=== PATIENT | male | born 1940 | race Caucasian/White ===

== ENCOUNTER 2017-02-11 09:40 | Emergency (ER) | payer MEDICARE, BC ==
[2017-02-11] MEDS ORDERED: Sodium Chloride 0.9% 10 ML Syringe FLUSH PRN (09:57)
[2017-02-11] MEDS ORDERED: Albuterol/Ipratropium 3.0-0.5 MG/3 ML Neb Soln NEB ONE ×2 (09:58→12:05)
[2017-02-11] MEDS ORDERED: Benzonatate 100 MG Cap PO ONE (10:00)
[2017-02-11 10:22] VITALS: BP 129/63
[2017-02-11 10:41] LABS: CHLORIDE,CL 97 mmol/L (101-111); SODIUM,NA 134 mmol/L (135-145)
[2017-02-11] MEDS ORDERED: cefTRIAXone 1 GM in Sodium Chloride 0.9% 50 ML IV ONE (11:23)
--- NOTE | 2017-02-11 15:31 | ER ---
SUBJECTIVE: The patient is a 76-year-old male, who has had a cold. He was just seen in clinic, I believe on Sunday, being sick for over a week. He went to [facility], here in [facility]. He was prescribed amoxicillin and Tessalon Perles. He states he used all the Perles, has finished his amoxicillin, he is not better, he still coughing, he was up all night coughing. He has some lethargy and malaise. He has body aches from coughing, not slept, and he has some sweats and chills. He came in by ambulance. He states he just cannot take any longer. He has decreased appetite. PAST MEDICAL HISTORY: Pertinent for hypertension, diabetes, osteoarthritis. CURRENT MEDICATIONS: Include: 1. Aspirin 81 mg p.o. daily. 2. Vasotec 20 mg p.o. b.i.d. 3. Hydrochlorothiazide 12.5 mg p.o. daily. 4. Metoprolol 50 mg p.o. daily. 5. Amlodipine 7.5 mg p.o. daily. 6. Metformin 500 mg p.o. daily. ALLERGIES: He is allergic to loratadine, does not recall why. SOCIAL HISTORY: He is , lives at home. No substance abuse. REVIEW OF SYSTEMS: Feels feverish. Unsure, if he has had a fever. He has some chills, lethargy, general malaise, body aches, coughing all night, has decreased appetite. Occasional mild headache. No syncope, near-syncope. No vision changes. No ear pain. No sinus pain. No bowel or bladder changes or bleeding. OBJECTIVE: Vital signs: His height is 1.91 m, weight is 104 kg. His temperature is 36.2, heart rate 66, blood pressure is 157/73, respiratory rate 24, oxygen 100% on room air. General: Warm, mildly diaphoretic. Fairly good historian. No respiratory distress. He does have some coughing. He is able to speak in full sentences. HEENT: Normocephalic and atraumatic. Unremarkable. Neck: Unremarkable. Chest: Moving air fairly well and fairly clear. He is coughing on occasion. Occasional rhonchi. He clears it with cough. CV: RRR. Abdomen: Soft and benign. Back: No CVAT. Extremities: No calf tenderness. LAB/STUDIES: He was swabbed for flu. It was negative. White count is normal at 5.5. He has mild anemia with hemoglobin and hematocrit of 13.2 and 38.9, respectively, platelets are normal. Sodium is 134, otherwise electrolytes look quite good. BUN is 27 but creatinine is normal at 1.0, glucose is 187. Lactic acid is 1.4 and normal. LFTs are normal. EMERGENCY ROOM COURSE: An IV was placed. He was given a DuoNeb treatment as well as a 200 mg Tessalon Perle. Once labs were back, he was given 1 g of Rocephin IV. He was given another DuoNeb. His chest x-ray did not show any acute pneumonia or pneumonic process. His blood was sent for culture, although he has already been on antibiotics. He tolerated all this very well and much improved. I did explain to him and his attendant , his workup and the findings of chest x-ray. He remained stable. ASSESSMENT: Bronchitis with heavy coughing. Already partially treated from when he was seen in clinic. PLAN: Home stay with family. Discharged in improved condition. Prescription for azithromycin and Tessalon Perles and albuterol inhaler were given. Symptomatic treatment. Plenty of rest, fluids, buy some strong [id number] cough medicine and syrup and lozenges. Follow up with PCP this next week as needed. [facility] /[id number]
== END 2017-02-11 12:20 | disposition home or self-care (01) ==
LOC: DL.ED 09:40
DX: J40 Bronchitis, not specified as acute or chronic (principal); I10 Essential (primary) hypertension; E11.9 Type 2 diabetes mellitus without complications; M19.90 Unspecified osteoarthritis, unspecified site; Z88.8 Allergy status to other drugs, medicaments and biological substances
CPT/HCPCS: 36415; 71020; 80053; 82150; 83605; 83880; 85025; 87040; 87804; 94640; 96365; 99285; A9270; J0696; J7050; 99284

== ENCOUNTER 2018-03-09 19:36 | Emergency (ER) | payer MEDICARE, BC ==
[2018-03-09 20:04] VITALS: BP 185/84
[2018-03-09 21:48] LABS: CHLORIDE,CL 95 mmol/L (101-111); SODIUM,NA 134 mmol/L (135-145)
[2018-03-09] MEDS ORDERED: Oseltamivir 75 MG Cap PO ONE (21:57)
--- NOTE | 2018-03-09 22:01 | EDM.PDOC ---
ED HPI GENERAL MEDICAL PROBLEM - General Chief Complaint: ENT Problem Stated Complaint: cold [id number] Time Seen by Provider: 03/09/18 20:45 Source of Information: Reports: Patient History Limitations: Reports: No Limitations - History of Present Illness INITIAL COMMENTS - FREE TEXT/NARRATIVE: C/o sore throat, [id number] phlegm that feels like he is choking, Occasional cough. No chest pain, mild body aches. Sudden onset of symptoms yesterday morning. also sick with fever, cough and body aches. Throat Pain Score (Numeric/FACES): 10 - Related Data Allergies Allergy/AdvReac Type Severity Reaction Status Date / Time loratadine Allergy Cannot Verified 03/09/18 19:47 Remember Home Meds: Home Meds Aspirin [Halfprin] 81 mg PO DAILY 02/11/17 [History] Enalapril [Vasotec] 20 mg PO BID 02/11/17 [History] Hydrochlorothiazide 12.5 mg PO DAILY 02/11/17 [History] Metoprolol Succinate [Toprol XL] 50 mg PO DAILY 02/11/17 [History] amLODIPine [Norvasc] 7.5 mg PO DAILY 02/11/17 [History] metFORMIN [Glucophage XR] 500 mg PO BID 02/11/17 [History] Past Medical History HEENT History: Reports: Cataract, Impaired Vision Cardiovascular History: Reports: High Cholesterol, Hypertension, Pacemaker Gastrointestinal History: Reports: Gastritis Endocrine/Metabolic History: Reports: Diabetes, Type II Social & Family History - Tobacco Use Smoking Status *Q: Never Smoker Second Hand Smoke Exposure: No - Caffeine Use Caffeine Use: Reports: None - Recreational Drug Use Recreational Drug Use: No ED ROS ENT - Review of Systems Review Of Systems: See Below Constitutional: Reports: Fever, Decreased Appetite HEENT: Reports: Throat Pain. Denies: Ear Pain, Rhinitis Respiratory: Denies: Shortness of Breath, Wheezing Cardiovascular: Denies: Chest Pain GI/Abdominal: Reports: Decreased Appetite Musculoskeletal: Reports: Other (generalized body ache) Neurological: Reports: No Symptoms ED EXAM, ENT - Physical Exam Exam: See Below Exam Limited By: No Limitations General Appearance: Alert, No Apparent Distress, Anxious Eye Exam: Bilateral Eye: EOMI Ears: Normal TMs, Other (bilateral hearing aids) Nose: Normal Inspection Mouth/Throat: Normal Inspection. No: Pharyngeal Erythema Head: Atraumatic, Normocephalic Neck: Lymphadenopathy (L) Respiratory/Chest: No Respiratory Distress, Lungs Clear, Normal Breath Sounds Cardiovascular: Normal Peripheral Pulses, Regular Rate, Rhythm GI/Abdominal: Normal Bowel Sounds, Soft Extremities: Normal Inspection Neurological: Alert, Oriented, Normal Cognition Skin: Warm, Dry, Intact, Normal Color Course - Vital Signs Last Recorded V/S: Last Vital Signs Temp 100.0 F 03/09/18 22:18 Pulse 77 03/09/18 22:18 Resp 18 03/09/18 22:18 BP 185/84 H 03/09/18 19:56 Pulse Ox 98 03/09/18 22:18 - Orders/Labs/Meds Orders: Active Orders 24 hr Category Date Time Status CULTURE SPUTUM + SMEAR [] Stat Lab 03/09/18 21:15 Ordered CULTURE STREP A CONFIRMATION [] Stat Lab 03/09/18 21:15 Results STREP SCRN A RAPID W CULT CONF [] Stat Lab 03/09/18 21:15 Results Labs: Laboratory Tests 03/09/18 03/09/18 Range/Units 21:20 21:20 WBC 11.1 H (5.0-10.0) 10^3/uL RBC 4.57 L (4.6-6.2) 10^6/uL Hgb 14.0 (14.0-18.0) g/dL Hct 42.0 (40.0-54.0) % MCV 91.9 (80-100) fL MCH 30.6 (27.0-34.0) pg MCHC 33.3 (33.0-35.0) g/dL Plt Count 180 D (150-450) 10^3/uL Neut % (Auto) 59.5 (42.2-75.2) % Lymph % (Auto) 22.8 (20.5-50.1) % [place] % (Auto) 17.0 H (2-8) % Eos % (Auto) 0.3 L (1.0-3.0) % Baso % (Auto) 0.4 (0.0-1.0) % Sodium 134 L (135-145) mmol/L Potassium 3.9 (3.6-5.0) mmol/L Chloride 95 L (101-111) mmol/L Carbon Dioxide 29.0 (21.0-31.0) mmol/L Anion Gap 13.9 BUN 20 H (7-18) mg/dL Creatinine 1.0 (0.6-1.3) mg/dL Est Cr Clr Drug Dosing 71.59 mL/min Estimated GFR (MDRD) > 60 Glucose 206 H (74-105) mg/dL Calcium 9.9 (8.4-10.2) mg/dl Meds: Medications Discontinued Medications Generic Name Dose Route Start Last Admin Trade Name Freq PRN Reason Stop Dose Admin Guaifenesin 100 mg 03/09/18 22:06 03/09/18 22:12 Robitussin PO 03/09/18 22:07 100 mg ONETIME ONE Administration Oseltamivir Phosphate 75 mg 03/09/18 21:57 03/09/18 22:11 Tamiflu PO 03/09/18 21:58 75 mg ONETIME ONE Administration - Radiology Interpretation Free Text/Narrative:: CXR clear Departure - Departure Time of Disposition: 21:59 Disposition: Home, Self-Care 01 Condition: Good Clinical Impression: Influenza A - Discharge Information Instructions: Influenza, Adult Referrals: PCP,None [Primary Care Provider] - Forms: ED Department Discharge Additional Instructions: increase fluids humidification tamiflu 75mg one twice daily for 5 days robitussin or muccinex per package label to aid in loosening secretions follow up in clinic mid week, sooner if symptoms worsen - My Orders Last 24 Hours: My Active Orders 03/09/18 21:15 CULTURE SPUTUM + SMEAR [RM] Stat CULTURE STREP A CONFIRMATION [RM] Stat STREP SCRN A RAPID W CULT CONF [] Stat - Assessment/Plan Last 24 Hours: My Active Orders 03/09/18 21:15 CULTURE SPUTUM + SMEAR [] Stat CULTURE STREP A CONFIRMATION [] Stat STREP SCRN A RAPID W CULT CONF [] Stat
[2018-03-09] MEDS ORDERED: guaiFENesin 100 MG/5 ML Soln 5 ML UD Cup PO ONE (22:06)
== END 2018-03-09 22:22 | disposition home or self-care (01) ==
LOC: DL.ED 19:36
DX: J10.1 Influenza due to other identified influenza virus with other respiratory manifestations (principal); E78.00 Pure hypercholesterolemia, unspecified; I10 Essential (primary) hypertension; E11.9 Type 2 diabetes mellitus without complications; Z88.8 Allergy status to other drugs, medicaments and biological substances; Z79.82 Long term (current) use of aspirin; Z79.899 Other long term (current) drug therapy; Z79.84 Long term (current) use of oral hypoglycemic drugs
CPT/HCPCS: 36415; 71046; 80048; 85025; 87070; 87081; 87205; 87430; 87804; 99283; A9270

== ENCOUNTER 2019-08-12 12:15 | Emergency (ER) | payer MEDICARE, BC ==
[2019-08-12 12:29] VITALS: BP 183/71; PULSE 74
[2019-08-12] MEDS ORDERED: Sodium Chloride 0.9% 10 ML Syringe FLUSH PRN (12:34)
[2019-08-12 13:13] LABS: ANION GAP 17.9; CHLORIDE,CL 96 mmol/L (101-111); SODIUM,NA 135 mmol/L (135-145)
[2019-08-12] MEDS ORDERED: Sodium Chloride 0.9% 1,000 ML IV ONE (14:18)
--- NOTE | 2019-08-12 15:01 | EDM.PDOC ---
ED HPI GENERAL MEDICAL PROBLEM - General Chief Complaint: General Stated Complaint: light headed dizzy, high blood sugar per pt Time Seen by Provider: 08/12/19 12:40 Source of Information: Reports: Patient, Family, RN, RN Notes Reviewed History Limitations: Reports: No Limitations - History of Present Illness INITIAL COMMENTS - FREE TEXT/NARRATIVE: Pt to ER with c/o dizziness and high blood sugars. Patient states yesterday he was dizzy. Blood sugars have ran from 110-200 lately. He states he has his yearly physical with his primary care provider in September. Patient states on Sunday evening he had a right ear ache. States he has a pain in the LLQ that comes and goes, has for quite some time now. Denies bowel issues, blood in urine or stool. Denies diarrhea. Denies chest pains or SOB. Denies recent fever. He states he is always cold. Denies urinary sx. Onset: Gradual Left Lower Abdomen Pain Score (Numeric/FACES): 6 - Related Data Allergies Allergy/AdvReac Type Severity Reaction Status Date / Time loratadine Allergy Cannot Verified 08/12/19 12:23 Remember Home Meds: Home Meds Aspirin [Halfprin] 81 mg PO DAILY 02/11/17 [History] Enalapril [Vasotec] 20 mg PO BID 02/11/17 [History] Hydrochlorothiazide 12.5 mg PO DAILY 02/11/17 [History] Metoprolol Succinate [Toprol XL] 50 mg PO DAILY 02/11/17 [History] amLODIPine [Norvasc] 7.5 mg PO DAILY 02/11/17 [History] metFORMIN [Glucophage XR] 1,000 mg PO BID 02/11/17 [History] Past Medical History HEENT History: Reports: Cataract, Hard of Hearing, Impaired Vision Cardiovascular History: Reports: High Cholesterol, Hypertension, Pacemaker Respiratory History: Reports: None Gastrointestinal History: Reports: Gastritis Genitourinary History: Reports: None Musculoskeletal History: Reports: None Neurological History: Reports: None Psychiatric History: Reports: None Endocrine/Metabolic History: Reports: Diabetes, Type II Hematologic History: Reports: None Immunologic History: Reports: None Oncologic (Cancer) History: Reports: None Dermatologic History: Reports: None - Infectious Disease History Infectious Disease History: Reports: None - Past Surgical History Head Surgeries/Procedures: Reports: None Social & Family History - Family History Family Medical History: Noncontributory - Tobacco Use Smoking Status *Q: Never Smoker Second Hand Smoke Exposure: No - Caffeine Use Caffeine Use: Reports: None - Recreational Drug Use Recreational Drug Use: No ED ROS GENERAL - Review of Systems Review Of Systems: ROS reveals no pertinent complaints other than HPI. ED EXAM, GENERAL - Physical Exam Exam: See Below Exam Limited By: No Limitations General Appearance: Alert, WD/WN, No Apparent Distress Eye Exam: Bilateral Eye: EOMI, Normal Inspection Ears: Normal External Exam, Hearing Loss Ear Exam: Bilateral Ear: TM Dull Nose: Normal Inspection Throat/Mouth: Normal Inspection, Normal Lips, Normal Teeth, Normal Gums, Normal Oropharynx, Normal Voice, No Airway Compromise Head: Atraumatic, Normocephalic Neck: Normal Inspection, Supple, Non-Tender, Full Range of Motion Respiratory/Chest: No Respiratory Distress, Lungs Clear, Normal Breath Sounds, No Accessory Muscle Use, Chest Non-Tender Cardiovascular: Normal Peripheral Pulses, Regular Rate, Rhythm, No Edema, No Gallop, No JVD, No Murmur, No Rub Peripheral Pulses: 2+: Radial (L), Radial (R) GI/Abdominal: Normal Bowel Sounds, Soft, Tender (LLQ) (Male) Exam: Deferred Rectal (Males) Exam: Deferred Back Exam: Normal Inspection, Decreased Range of Motion Extremities: Normal Inspection, Normal Range of Motion, Non-Tender, Normal Capillary Refill, No Pedal Edema Neurological: Alert, Oriented, CN II-XII Intact, Normal Cognition, Normal Gait, Normal Reflexes, No Motor/Sensory Deficits Psychiatric: Normal Affect, Normal Mood Skin Exam: Warm, Dry, Intact, No Rash, Pallor Lymphatic: Adenopathy (Left anterior cervical +2) Course - Vital Signs Last Recorded V/S: Last Vital Signs Temp 97.4 F 08/12/19 12:25 Pulse 74 08/12/19 12:25 Resp 18 08/12/19 12:25 BP 183/71 H 08/12/19 12:25 Pulse Ox 98 08/12/19 12:25 - Orders/Labs/Meds Orders: Active Orders 24 hr Category Date Time Status EKG Documentation Completion [RC] STAT Care 08/12/19 13:28 Active Peripheral IV Care [RC] . DIRECTED Care 08/12/19 12:41 Active Sodium Chloride 0.9% [Saline Flush] Med 08/12/19 12:34 Active 10 ml FLUSH ASDIRECTED PRN Peripheral IV Insertion Adult [OM.PC] Stat Oth 08/12/19 12:35 Ordered Medication Orders Sodium Chloride (Saline Flush) 10 ml FLUSH ASDIRECTED PRN PRN Reason: Keep Vein Open Last Admin: 08/12/19 12:42 Dose: 10 ml Labs: Laboratory Tests 08/12/19 08/12/19 08/12/19 Range/Units 12:26 12:41 12:41 WBC 7.2 (5.0-10.0) 10^3/uL RBC 4.28 L (4.6-6.2) 10^6/uL Hgb 13.0 L (14.0-18.0) g/dL Hct 39.2 L (40.0-54.0) % MCV 91.6 (80-100) fL MCH 30.4 (27.0-34.0) pg MCHC 33.2 (33.0-35.0) g/dL Plt Count 248 (150-450) 10^3/uL Neut % (Auto) 41.9 L (42.2-75.2) % Lymph % (Auto) 37.6 (20.5-50.1) % [place] % (Auto) 16.7 H (2-8) % Eos % (Auto) 3.2 H (1.0-3.0) % Baso % (Auto) 0.6 (0.0-1.0) % Sodium 135 (135-145) mmol/L Potassium 3.9 (3.6-5.0) mmol/L Chloride 96 L (101-111) mmol/L Carbon Dioxide 25.0 (21.0-31.0) mmol/L Anion Gap 17.9 BUN 27 H (7-18) mg/dL Creatinine 1.1 (0.6-1.3) mg/dL Est Cr Clr Drug Dosing 62.95 mL/min Estimated GFR (MDRD) > 60 BUN/Creatinine Ratio 24.54 Glucose 181 H (74-105) mg/dL POC Glucose 169 H (83-110) mg/dl Lactic Acid (0.5-2.2) mmol/L Calcium 9.9 (8.4-10.2) mg/dl Total Bilirubin 0.4 (0.2-1.0) mg/dL AST 27 (10-42) IU/L ALT 16 (10-60) IU/L Alkaline Phosphatase 60 (42-121) IU/L Troponin I (0.00-0.02) ng/ml Total Protein 8.2 (6.7-8.2) g/dl Albumin 4.5 (3.2-5.5) g/dl Globulin 3.7 Albumin/Globulin Ratio 1.22 Urine Color (YELLOW) Urine Appearance (CLEAR) Urine pH (5.0-9.0) Ur Specific [place] (1.005-1.030) Urine Protein (NEGATIVE) Urine Glucose (UA) (NEGATIVE) Urine Ketones (NEGATIVE) Urine Occult Blood (NEGATIVE) Urine Nitrite (NEGATIVE) Urine Bilirubin (NEGATIVE) Urine Urobilinogen (0.2-1.0) mg/dL Ur Leukocyte Esterase (NEGATIVE) Urine RBC /HPF Urine WBC (0-5/HPF) /HPF Ur Epithelial Cells (NOT SEEN) /HPF Urine Bacteria (0-FEW/HPF) /HPF Urine Mucus (NOT SEEN) /LPF 08/12/19 08/12/19 08/12/19 Range/Units 12:41 12:41 13:05 WBC (5.0-10.0) 10^3/uL RBC (4.6-6.2) 10^6/uL Hgb (14.0-18.0) g/dL Hct (40.0-54.0) % MCV (80-100) fL MCH (27.0-34.0) pg MCHC (33.0-35.0) g/dL Plt Count (150-450) 10^3/uL Neut % (Auto) (42.2-75.2) % Lymph % (Auto) (20.5-50.1) % [place] % (Auto) (2-8) % Eos % (Auto) (1.0-3.0) % Baso % (Auto) (0.0-1.0) % Sodium (135-145) mmol/L Potassium (3.6-5.0) mmol/L Chloride (101-111) mmol/L Carbon Dioxide (21.0-31.0) mmol/L Anion Gap BUN (7-18) mg/dL Creatinine (0.6-1.3) mg/dL Est Cr Clr Drug Dosing mL/min Estimated GFR (MDRD) BUN/Creatinine Ratio Glucose (74-105) mg/dL POC Glucose (83-110) mg/dl Lactic Acid 2.7 H (0.5-2.2) mmol/L Calcium (8.4-10.2) mg/dl Total Bilirubin (0.2-1.0) mg/dL AST (10-42) IU/L ALT (10-60) IU/L Alkaline Phosphatase (42-121) IU/L Troponin I < 0.02 (0.00-0.02) ng/ml Total Protein (6.7-8.2) g/dl Albumin (3.2-5.5) g/dl Globulin Albumin/Globulin Ratio Urine Color Yellow (YELLOW) Urine Appearance Clear (CLEAR) Urine pH 5.5 (5.0-9.0) Ur Specific [place] 1.015 (1.005-1.030) Urine Protein Negative (NEGATIVE) Urine Glucose (UA) Negative (NEGATIVE) Urine Ketones Negative (NEGATIVE) Urine Occult Blood Trace-intact H (NEGATIVE) Urine Nitrite Negative (NEGATIVE) Urine Bilirubin Negative (NEGATIVE) Urine Urobilinogen 0.2 (0.2-1.0) mg/dL Ur Leukocyte Esterase Negative (NEGATIVE) Urine RBC 0-5 /HPF Urine WBC Not seen (0-5/HPF) /HPF Ur Epithelial Cells Rare (NOT SEEN) /HPF Urine Bacteria Not seen (0-FEW/HPF) /HPF Urine Mucus Not seen (NOT SEEN) /LPF Meds: Medications Generic Name Dose Route Start Last Admin Trade Name Freq PRN Reason Stop Dose Admin Sodium Chloride 10 ml 08/12/19 12:34 08/12/19 12:42 Saline Flush FLUSH 10 ml ASDIRECTED PRN Administration Keep Vein Open Discontinued Medications Generic Name Dose Route Start Last Admin Trade Name Freq PRN Reason Stop Dose Admin Sodium Chloride 1,000 mls @ 999 mls/hr 08/12/19 14:18 08/12/19 14:50 Normal Saline IV 08/12/19 15:18 999 mls/hr .BOLUS ONE Administration - Radiology Interpretation Free Text/Narrative:: Chest xray: FINDINGS: Tubes, catheters and devices: A pacemaker device is present, and its leads are in appropriate position. Lungs: The lungs are normal. Pleural space: There are no pleural effusions present. Heart/Mediastinum: The heart is not enlarged. Diaphragm: There is nonspecific elevation of the left hemidiaphragm. Bones/joints: Unremarkable IMPRESSION: 1. No acute abnormality. 2. No significant change is identified since the prior exam. Thank you for allowing us to participate in the care of your patient. Dictated and Authenticated by: Pk Londono MD 08/12/2019 2:27 PM Central Time ([place] & [place]) Abdomen/Pelvis CT wo contrast: FINDINGS: Lungs: The visualized portions of the lung bases are normal. Heart: The visualized portions of the heart are unremarkable. Diaphragm: There is nonspecific elevation of the left hemidiaphragm. Liver: The liver is normal. Gallbladder and bile ducts: Multiple calcified gallstones are present. Pancreas: The pancreas is normal. Spleen: The spleen is normal. Adrenals: The adrenal glands are normal. Kidneys and ureters: The kidneys are normal. There is no evidence of renal or ureteral calcifications. Stomach and bowel: The stomach is normal. No over distention of bowel loops is seen. Appendix: A normal appendix is identified. Intraperitoneal space: No evidence of intraperitoneal free air. Vasculature: The aorta demonstrates mild atherosclerotic calcification. Lymph nodes: No pathologic lymph node enlargement is demonstrated. Bladder: The bladder is normal. Reproductive: The prostate and seminal vesicles are normal. Bones/joints: There is marked narrowing of the L5-S1 disc. Marginal osteophytes are noted at multiple levels in the spine. Soft tissues: There are bilateral fat containing inguinal hernias. The extra- abdominal soft tissues are otherwise normal. IMPRESSION: 1. Bilateral inguinal hernias. No anterior abdominal wall hernia is demonstrated. 2. Elevation of the left hemidiaphragm. Thank you for allowing us to participate in the care of your patient. Dictated and Authenticated by: Pk Londono MD 08/12/2019 2:58 PM Central Time ([place] & [place]) See rad report Departure - Departure Time of Disposition: 15:01 Disposition: Home, Self-Care 01 Condition: Fair Clinical Impression: Dizziness Inguinal hernia Qualifiers: Obstruction and gangrene presence: without obstruction or gangrene Laterality: bilateral Recurrence: not specified as recurrent Qualified Code(s): K40.20 - Bilateral inguinal hernia, without obstruction or gangrene, not specified as recurrent Sinusitis Qualifiers: Sinusitis location: frontal Chronicity: subacute Qualified Code(s): J01.10 - Acute frontal sinusitis, unspecified - Discharge Information *PRESCRIPTION DRUG MONITORING PROGRAM REVIEWED*: No *COPY OF PRESCRIPTION DRUG MONITORING REPORT IN PATIENT PAU: No Instructions: Inguinal Hernia, Adult, [id number], Sinusitis, Adult, Easy-to- Read, Hernia, Adult, [id number], How to Perform a Sinus Rinse, [id number], Dizziness, [id number] Forms: ED Department Discharge Additional Instructions: RX: Augmentin Drink plenty of fluids Follow up with your primary care facility - My Orders Last 24 Hours: My Active Orders 08/12/19 12:34 Sodium Chloride 0.9% [Saline Flush] 10 ml FLUSH ASDIRECTED PRN 08/12/19 12:35 Peripheral IV Insertion Adult [OM.PC] Stat 08/12/19 12:41 Peripheral IV Care [RC] . DIRECTED 08/12/19 13:28 EKG Documentation Completion [RC] STAT - Assessment/Plan Last 24 Hours: My Active Orders 08/12/19 12:34 Sodium Chloride 0.9% [Saline Flush] 10 ml FLUSH ASDIRECTED PRN 08/12/19 12:35 Peripheral IV Insertion Adult [OM.PC] Stat 08/12/19 12:41 Peripheral IV Care [RC] . DIRECTED 08/12/19 13:28 EKG Documentation Completion [RC] STAT
== END 2019-08-12 15:20 | disposition home or self-care (01) ==
LOC: DL.ED 12:15
DX: K40.20 Bilateral inguinal hernia, without obstruction or gangrene, not specified as recurrent (principal); J01.10 Acute frontal sinusitis, unspecified; I10 Essential (primary) hypertension; E11.9 Type 2 diabetes mellitus without complications; Z79.84 Long term (current) use of oral hypoglycemic drugs; Z79.899 Other long term (current) drug therapy; Z79.82 Long term (current) use of aspirin; Z88.8 Allergy status to other drugs, medicaments and biological substances
CPT/HCPCS: 36415; 71045; 74176; 80053; 81001; 82962; 83605; 84484; 85025; 99285; J7030

== ENCOUNTER 2019-08-19 10:57 | Observation (INO) | payer MEDICARE, BC ==
[2019-08-19] MEDS ORDERED: Sodium Chloride 0.9% 10 ML Syringe FLUSH PRN (11:06)
[2019-08-19 11:43] LABS: ANION GAP 16.2; CHLORIDE,CL 96 mmol/L (101-111); SODIUM,NA 134 mmol/L (135-145)
--- NOTE | 2019-08-19 11:53 | EDM.PDOC ---
ED HPI GENERAL MEDICAL PROBLEM - General Chief Complaint: Diabetic Complaint Stated Complaint: AMBULNACE Time Seen by Provider: 08/19/19 11:00 Source of Information: Reports: Patient, EMS, EMS Notes Reviewed, Family, Old Records, RN, RN Notes Reviewed History Limitations: Reports: No Limitations - History of Present Illness INITIAL COMMENTS - FREE TEXT/NARRATIVE: Pt to ER per [facility] with c/o high blood sugars and overall feeling week. Patient was seen in the ER 1 week ago. He was started on Augmentin for a sinus infection. Patient states he was unable to finish taking the Augmentin as it upset his stomach so much. Patient states he did take it with food and water , did vomit once. States he feels he is too weak to do things he normally does. States his blood sugars have been running higher than normal. States he has his annual physical with his primary provider in September. Denies recent fever or chills, diarrhea, chest pain or SOB. Onset: Gradual - Related Data Allergies Allergy/AdvReac Type Severity Reaction Status Date / Time loratadine Allergy Cannot Verified 08/19/19 11:12 Remember Home Meds: Home Meds Aspirin [Halfprin] 81 mg PO DAILY 02/11/17 [History] Enalapril [Vasotec] 20 mg PO BID 02/11/17 [History] Hydrochlorothiazide 12.5 mg PO DAILY 02/11/17 [History] Metoprolol Succinate [Toprol XL] 50 mg PO DAILY 02/11/17 [History] amLODIPine [Norvasc] 7.5 mg PO DAILY 02/11/17 [History] Amoxicillin/Clavulanate K [Augmentin 875-125 MG] 1 tab PO DAILY 08/19/19 [ History] Famotidine [Pepcid] 20 mg PO DAILY PRN 08/19/19 [History] Simvastatin [Zocor] 20 mg PO BEDTIME 08/19/19 [History] metFORMIN HCl [Metformin HCl] 1,000 mg PO BIDMEALS 08/19/19 [History] Past Medical History HEENT History: Reports: Cataract, Hard of Hearing, Impaired Vision Cardiovascular History: Reports: High Cholesterol, Hypertension, Pacemaker Respiratory History: Reports: None Gastrointestinal History: Reports: Gastritis Genitourinary History: Reports: None Musculoskeletal History: Reports: None Neurological History: Reports: None Psychiatric History: Reports: None Endocrine/Metabolic History: Reports: Diabetes, Type II Hematologic History: Reports: None Immunologic History: Reports: None Oncologic (Cancer) History: Reports: None Dermatologic History: Reports: None - Infectious Disease History Infectious Disease History: Reports: None - Past Surgical History Head Surgeries/Procedures: Reports: None Social & Family History - Family History Family Medical History: Noncontributory - Tobacco Use Smoking Status *Q: Former Smoker Years of Tobacco use: 5 Packs/Tins Daily: 0.5 Used Tobacco, but Quit: Yes Month/Year Tobacco Last Used: november Second Hand Smoke Exposure: No - Caffeine Use Caffeine Use: Reports: Tea - Recreational Drug Use Recreational Drug Use: No ED ROS GENERAL - Review of Systems Review Of Systems: ROS reveals no pertinent complaints other than HPI. ED EXAM GENERAL NO PERIP PULSE - Physical Exam Exam: See Below Exam Limited By: No Limitations General Appearance: Alert, WD/WN, Mild Distress Eye Exam: Bilateral Eye: EOMI, Normal Inspection Ears: Normal External Exam, Hearing Grossly Normal, Other (hearing aids bilaterally) Nose: Normal Inspection, Normal Mucosa, No Blood Throat/Mouth: Normal Inspection, Normal Lips, Normal Teeth, Normal Gums, Normal Oropharynx, Normal Voice, No Airway Compromise Head: Atraumatic, Normocephalic Neck: Normal Inspection, Supple, Non-Tender, Full Range of Motion Respiratory/Chest: No Respiratory Distress, Lungs Clear, Normal Breath Sounds, No Accessory Muscle Use, Chest Non-Tender Cardiovascular: Normal Peripheral Pulses, Regular Rate, Rhythm, No Edema, No Gallop, No JVD, No Murmur, No Rub GI/Abdominal: Normal Bowel Sounds, Soft, Non-Tender, No Organomegaly, No Distention, No Abnormal Bruit, No Mass (Male) Exam: Deferred Rectal (Males) Exam: Deferred Back Exam: Normal Inspection, Full Range of Motion, NT Extremities: Normal Inspection, Normal Range of Motion, Non-Tender, Normal Capillary Refill, No Pedal Edema Neurological: Alert, Oriented, CN II-XII Intact, Normal Cognition, Other (weak) Psychiatric: Normal Affect, Normal Mood Skin Exam: Warm, Dry, Intact, Pallor Lymphatic: No Adenopathy Course - Vital Signs Last Recorded V/S: Last Vital Signs Temp 97 F 08/19/19 12:43 Pulse 74 08/19/19 12:43 Resp 20 08/19/19 12:43 BP 159/67 H 08/19/19 12:43 Pulse Ox 100 08/19/19 12:43 - Orders/Labs/Meds Orders: Active Orders 24 hr Category Date Time Status EKG Documentation Completion [RC] STAT Care 08/19/19 11:06 Active Peripheral IV Care [RC] . DIRECTED Care 08/19/19 11:07 Active Sodium Chloride 0.9% [Saline Flush] Med 08/19/19 11:06 Active 10 ml FLUSH ASDIRECTED PRN Peripheral IV Insertion Adult [OM.PC] Stat Oth 08/19/19 11:06 Ordered Medication Orders Amlodipine Besylate (Norvasc) 7.5 mg PO DAILY [facility] Aspirin (Halfprin) 81 mg PO DAILY [facility] Enoxaparin Sodium (Lovenox) 40 mg SUBCUT DAILY [facility] Sodium Chloride (Normal Saline) 1,000 mls @ 75 mls/hr IV ASDIRECTED [facility] Last Admin: 08/19/19 15:05 Dose: 75 mls/hr Insulin Human Lispro (Humalog) 0 unit SUBCUT TIDMEALS [facility]; Protocol Metformin HCl (Glucophage) 1,000 mg PO BIDMEALS [facility] Metoprolol Succinate (Toprol Xl) 50 mg PO DAILY [facility] Enalapril 20 Mg Tab (Pt Own Med) 20 mg PO BID [facility] Pantoprazole Sodium (Protonix Iv) 40 mg IVPUSH DAILY [facility] Last Admin: 08/19/19 15:04 Dose: 40 mg Sodium Chloride (Saline Flush) 10 ml FLUSH ASDIRECTED PRN PRN Reason: Keep Vein Open Last Admin: 08/19/19 11:34 Dose: 10 ml Labs: Laboratory Tests 08/19/19 08/19/19 08/19/19 Range/Units 11:14 11:15 11:15 WBC 7.4 (5.0-10.0) 10^3/uL RBC 4.08 L (4.6-6.2) 10^6/uL Hgb 12.5 L (14.0-18.0) g/dL Hct 37.2 L (40.0-54.0) % MCV 91.2 (80-100) fL MCH 30.6 (27.0-34.0) pg MCHC 33.6 (33.0-35.0) g/dL Plt Count 248 (150-450) 10^3/uL Neut % (Auto) 39.7 L (42.2-75.2) % Lymph % (Auto) 39.4 (20.5-50.1) % [place] % (Auto) 16.9 H (2-8) % Eos % (Auto) 3.5 H (1.0-3.0) % Baso % (Auto) 0.5 (0.0-1.0) % PT (9.0-12.0) SEC INR (0.9-1.2) Sodium 134 L (135-145) mmol/L Potassium 4.2 (3.6-5.0) mmol/L Chloride 96 L (101-111) mmol/L Carbon Dioxide 26.0 (21.0-31.0) mmol/L Anion Gap 16.2 BUN 28 H (7-18) mg/dL Creatinine 1.3 (0.6-1.3) mg/dL Est Cr Clr Drug Dosing 53.26 mL/min Estimated GFR (MDRD) 53 BUN/Creatinine Ratio 21.53 Glucose 167 H (74-105) mg/dL POC Glucose 159 H (83-110) mg/dl Calcium 9.9 (8.4-10.2) mg/dl Total Bilirubin 0.7 (0.2-1.0) mg/dL AST 24 (10-42) IU/L ALT 16 (10-60) IU/L Alkaline Phosphatase 55 (42-121) IU/L Troponin I < 0.02 (0.00-0.02) ng/ml Total Protein 7.8 (6.7-8.2) g/dl Albumin 4.3 (3.2-5.5) g/dl Globulin 3.5 Albumin/Globulin Ratio 1.23 Amylase (28-100) U/L Lipase (22-51) U/L 08/19/19 08/19/19 Range/Units 11:15 11:15 WBC (5.0-10.0) 10^3/uL RBC (4.6-6.2) 10^6/uL Hgb (14.0-18.0) g/dL Hct (40.0-54.0) % MCV (80-100) fL MCH (27.0-34.0) pg MCHC (33.0-35.0) g/dL Plt Count (150-450) 10^3/uL Neut % (Auto) (42.2-75.2) % Lymph % (Auto) (20.5-50.1) % [place] % (Auto) (2-8) % Eos % (Auto) (1.0-3.0) % Baso % (Auto) (0.0-1.0) % PT 10.0 (9.0-12.0) SEC INR 1.0 (0.9-1.2) Sodium (135-145) mmol/L Potassium (3.6-5.0) mmol/L Chloride (101-111) mmol/L Carbon Dioxide (21.0-31.0) mmol/L Anion Gap BUN (7-18) mg/dL Creatinine (0.6-1.3) mg/dL Est Cr Clr Drug Dosing mL/min Estimated GFR (MDRD) BUN/Creatinine Ratio Glucose (74-105) mg/dL POC Glucose (83-110) mg/dl Calcium (8.4-10.2) mg/dl Total Bilirubin (0.2-1.0) mg/dL AST (10-42) IU/L ALT (10-60) IU/L Alkaline Phosphatase (42-121) IU/L Troponin I (0.00-0.02) ng/ml Total Protein (6.7-8.2) g/dl Albumin (3.2-5.5) g/dl Globulin Albumin/Globulin Ratio Amylase 85 (28-100) U/L Lipase 37 (22-51) U/L Meds: Medications Generic Name Dose Route Start Last Admin Trade Name Freq PRN Reason Stop Dose Admin Amlodipine Besylate 7.5 mg 08/20/19 09:00 Norvasc PO DAILY [facility] Aspirin 81 mg 08/20/19 09:00 Halfprin PO DAILY [facility] Enoxaparin Sodium 40 mg 08/20/19 09:00 Lovenox SUBCUT DAILY [facility] Sodium Chloride 1,000 mls @ 75 mls/hr 08/19/19 12:45 08/19/19 15:05 Normal Saline IV 75 mls/hr ASDIRECTED [facility] Administration Insulin Human Lispro 0 unit 08/19/19 17:00 Humalog SUBCUT TIDMEALS [facility] Protocol Metformin HCl 1,000 mg 08/19/19 18:00 Glucophage PO BIDMEALS [facility] Metoprolol Succinate 50 mg 08/20/19 09:00 Toprol Xl PO DAILY [facility] Enalapril 20 Mg Tab 20 mg 08/19/19 21:00 Pt Own Med PO BID [facility] Pantoprazole Sodium 40 mg 08/19/19 14:30 08/19/19 15:04 Protonix Iv IVPUSH 40 mg DAILY [facility] Administration Sodium Chloride 10 ml 08/19/19 11:06 08/19/19 11:34 Saline Flush FLUSH 10 ml ASDIRECTED PRN Administration Keep Vein Open Discontinued Medications Generic Name Dose Route Start Last Admin Trade Name Freq PRN Reason Stop Dose Admin Sodium Chloride 1,000 mls @ 999 mls/hr 08/19/19 12:03 08/19/19 12:09 Normal Saline IV 08/19/19 13:03 999 mls/hr .BOLUS ONE Administration Pantoprazole Sodium 40 mg/ 100 mls @ 20 mls/hr 08/19/19 13:00 Sodium Chloride IV .CONTINUOS [facility] - Radiology Interpretation Free Text/Narrative:: Chest xray: See rad report - Re-Assessments/Exams Free Text/Narrative Re-Assessment/Exam: 08/19/19 15:24 Discussed patient case with Dr. Dewitt who agreed to accept the patient for observation admission. Departure - Departure Time of Disposition: 12:29 Disposition: Refer to Observation Condition: Fair Clinical Impression: Generalized weakness Abdominal pain Qualifiers: Abdominal location: generalized Qualified Code(s): R10.84 - Generalized abdominal pain - Discharge Information *PRESCRIPTION DRUG MONITORING PROGRAM REVIEWED*: No *COPY OF PRESCRIPTION DRUG MONITORING REPORT IN PATIENT PAU: No - My Orders Last 24 Hours: My Active Orders 08/19/19 11:06 EKG Documentation Completion [RC] STAT Sodium Chloride 0.9% [Saline Flush] 10 ml FLUSH ASDIRECTED PRN Peripheral IV Insertion Adult [OM.PC] Stat 08/19/19 11:07 Peripheral IV Care [RC] . DIRECTED - Assessment/Plan Last 24 Hours: My Active Orders 08/19/19 11:06 EKG Documentation Completion [RC] STAT Sodium Chloride 0.9% [Saline Flush] 10 ml FLUSH ASDIRECTED PRN Peripheral IV Insertion Adult [OM.PC] Stat 08/19/19 11:07 Peripheral IV Care [RC] . DIRECTED
[2019-08-19] MEDS ORDERED: Sodium Chloride 0.9% 1,000 ML IV ONE (12:03)
[2019-08-19] MEDS ORDERED: Pantoprazole 40 MG in Sodium Chloride 0.9% 100 ML IV SCH (13:00)
--- NOTE | 2019-08-19 13:04 | CR ---
EXAMINATION: Chest 1V Frontal SEX: Male AGE: 79 years CLINICAL HISTORY: 79-year-old male complaining of chest pain. INTERPRETATION: 1. 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 2. Normal cardiac silhouette without new pulmonary venous congestion, cephalization of flow, alveolar edema or dependent pleural fluid accumulation. (External monitor technician leads) 3. No new lung mass, hilar lymphadenopathy or focal lobar pneumonia. 4. No atelectasis/collapse. No pneumothorax. CONCLUSION: No acute new cardiopulmonary abnormality.
[2019-08-19] MEDS: Pantoprazole 40 MG Vial IVPUSH SCH (15:04)
[2019-08-19] MEDS: Sodium Chloride 0.9% 1,000 ML IV SCH (15:05)
[2019-08-19] MEDS: Insulin Lispro 100 Units/ML 3 ML Vial SUBCUT SCH (16:59)
[2019-08-19] MEDS: METFORMIN 500 MG PO SCH (17:43)
--- NOTE | 2019-08-19 18:19 | HP ---
CHIEF COMPLAINT: Generalized weakness and abdominal pain. HISTORY OF PRESENT ILLNESS: The patient is an 79-year-old gentleman who was brought in by ER ambulance, by [facility] to the emergency room complaining of high blood sugar and overall just feeling weak. The patient was seen in the emergency room about a week ago. He was started on Augmentin for sinus infection, and he was unable to finish the Augmentin because it was bothering his stomach. Today, he has noted that his blood sugar was running a little bit elevated than usual and the highest that he took was about 260. He was also complaining of just feeling weak and also feeling shaky. He denies though any chest pain, orthopnea, PND, cough, diarrhea, dysuria nor any other complaints. Because of the above, he was seen in the emergency room, and because of his generalized weakness, he was admitted for further evaluation and management. He had a CAT scan of his abdomen a week ago and it showed bilateral inguinal hernia, otherwise unremarkable. PAST MEDICAL HISTORY: Remarkable for type 2 diabetes mellitus, hypertension. He is status post permanent pacemaker placement. He has history of gastritis. FAMILY HISTORY: Noncontributory. SOCIAL HISTORY: The patient is . Former smoker, but no alcohol or any illicit drug use. REVIEW OF SYSTEMS: As in HPI. The rest of the review of systems is negative. HOME MEDICATIONS: Aspirin, enalapril, hydrochlorothiazide, metoprolol, amlodipine, metformin, and Pepcid p.r.n. ALLERGIES: Loratadine. PHYSICAL EXAMINATION: General: The patient is alert and oriented, not in any acute distress. Vital Signs: Blood pressure is 137/70, pulse of 71, respirations 16, temperature of 97.6, saturation is 97%. SHEENT: Normocephalic. There are pink palpebral conjunctivae. Sclerae anicteric. No JVD. No lymphadenopathy. Heart: Regular rate and rhythm. Normal S1 and S2. No gallops. No rubs. Lungs: Equal bilaterally. No crackles. No wheezing. Abdomen: Obese, soft. There is very mild direct tenderness on the left lower quadrant. No rebound. Bowel sounds positive. Extremities: Negative for any significant pedal edema. No calf tenderness. LABORATORY WORKUP: CBC: WBC 7.4, hemoglobin is 12.1, hematocrit is 37.2, platelets are 248. Comp panel: Sodium is 134, BUN is 28, glucose is 167. The rest of the panel unremarkable. Troponin is less than 0.02. ADMITTING DIAGNOSES: 1. Generalized weakness. 2. Abdominal pain, possible gastritis. 3. Type 2 diabetes mellitus. 4. Hypertension. 5. History of pacemaker placement. TREATMENT PLAN: The patient is going to be admitted to observation, General Medicine floor. He will be started on IV fluids. He will be also started on IV Protonix, and he will be resumed on his home medication and blood sugar will be closely monitored. The rest of the management as necessary. [facility] /[id number]
[2019-08-19] MEDS: ENALAPRIL 20 MG PO SCH (20:40)
[2019-08-19] MEDS ORDERED: ENALAPRIL 20 MG PO SCH ×2 (21:00)
[2019-08-20] MEDS: Sodium Chloride 0.9% 1,000 ML IV SCH (03:57)
[2019-08-20 07:10] LABS: CHLORIDE,CL 102 mmol/L (101-111); SODIUM,NA 136 mmol/L (135-145)
[2019-08-20] MEDS: Insulin Lispro 100 Units/ML 3 ML Vial SUBCUT SCH ×2 (07:54→11:40)
[2019-08-20] MEDS: METFORMIN 500 MG PO SCH (08:28)
[2019-08-20] MEDS: ENALAPRIL 20 MG PO SCH (08:29)
[2019-08-20] MEDS: Pantoprazole 40 MG Vial IVPUSH SCH (08:38)
[2019-08-20] MEDS: Enoxaparin 40 MG/0.4 ML Syringe SUBCUT SCH ×2 (08:38→08:46)
[2019-08-20] MEDS ORDERED: Metoprolol Succinate 50 MG Tab.ER **PT OWN MED PO SCH (09:00)
[2019-08-20] MEDS ORDERED: amLODIPine 5 MG Tab **PT OWN MED PO SCH (09:00)
[2019-08-20] MEDS ORDERED: Aspirin 81 MG Tab.EC **PT OWN MED PO SCH (09:00)
[2019-08-20 11:39] VITALS: BP 143/68; PULSE 80
--- NOTE | 2019-08-20 14:30 | DISCH ---
ADMITTING DIAGNOSES: 1. Abdominal discomfort. 2. Type 2 diabetes mellitus, uncontrolled. 3. Generalized weakness. DISCHARGE DIAGNOSES: 1. Generalized weakness, resolved. 2. Abdominal discomfort from antibiotic with Augmentin, resolved. 3. Type 2 diabetes mellitus, improved. HISTORY OF PRESENTING ILLNESS: Mr. Ivan Bowens is an 79-year-old male with a medical history significant for hypertension, type 2 diabetes mellitus, hyperlipidemia, recently diagnosed with possible sinusitis, was given Augmentin which has caused abdominal discomfort leading to uncontrolled type 2 diabetes mellitus and decreased oral intake. The patient was noted to have generalized weakness. The patient was admitted to the hospital and was given IV fluids, after which his symptoms got resolved. He remained hemodynamically stable on this admission. He was started back on his oral regimen. His blood sugars have much improved. He is able to ambulate well without any difficulty. He is discharged home in stable condition. He is advised to continue with his medications. He will stop his Augmentin. DISCHARGE MEDICATIONS: Include aspirin 81 mg daily, enalapril 20 mg twice a day, Pepcid 20 mg daily, hydrochlorothiazide 12.5 mg daily, Toprol-XL 50 mg daily, simvastatin 20 mg at bedtime, Norvasc 7.5 mg daily, and metformin 1000 mg twice a day. PHYSICAL EXAMINATION ON THE DAY OF DISCHARGE: Vital Signs: Temperature of 98, pulse of 80, blood pressure of 139/64, respiratory rate of 18, and saturating at 97%. General Appearance: The patient is well oriented to time, place, and person. Follows commands spontaneously. Cardiovascular: S1 and S2 heard with normal intensity. No gallops. Respiratory: Clear to auscultation bilaterally. No wheeze. No crepitations. Abdomen: Soft. Bowel sounds positive. Nontender. No rigidity. Extremities: No edema in bilateral lower extremities. CONDITION ON ADMISSION: Poor. CONDITION ON DISCHARGE: Stable. DISPOSITION: Discharged to home. ACTIVITY: As tolerated. DIET: Cardiac healthy diet and consistent carbohydrate diet. DISCHARGE INSTRUCTIONS: Follow with primary care physician in next 1 week of time. Check fingersticks at home. [facility] /[id number]
== END 2019-08-20 13:15 | disposition home or self-care (01) ==
LOC: DL.ED 10:57 → DL.MS 12:23
PROVIDERS: ADMIT Internal Medicine; ATTEND Internal Medicine
DX: R53.1 Weakness (principal); R10.9 Unspecified abdominal pain; T36.0X5A Adverse effect of penicillins, initial encounter; E11.9 Type 2 diabetes mellitus without complications; I10 Essential (primary) hypertension; E78.5 Hyperlipidemia, unspecified; Z95.0 Presence of cardiac pacemaker; Z87.891 Personal history of nicotine dependence; Z79.82 Long term (current) use of aspirin; Z79.899 Other long term (current) drug therapy; Z79.84 Long term (current) use of oral hypoglycemic drugs; Z88.8 Allergy status to other drugs, medicaments and biological substances
CPT/HCPCS: 36415; 71045; 80053; 81003; 82150; 82962; 83690; 84484; 85025; 85610; 93005; 96361; 96374; 96376; 99285-25; A9270-GY; C9113; G0378; J1650; J7030

== ENCOUNTER 2020-09-23 05:25 | Day surgery (SDC) | payer MEDICARE, BC ==
[2020-09-23] MEDS ORDERED: Midazolam 1 MG/ML 2 ML SDV IV ONE ×8 (05:26→06:49)
[2020-09-23] MEDS ORDERED: fentaNYL 100 MCG/2 ML SDV IV ONE ×3 (05:26→06:33)
[2020-09-23] MEDS ORDERED: Dextrose 5%-0.45% NaCl 1,000 ML IV SCH (05:45)
[2020-09-23] MEDS ORDERED: fentaNYL 100 MCG/2 ML SDV ONE (06:13)
[2020-09-23] MEDS ORDERED: Midazolam 1 MG/ML 2 ML SDV ONE (06:13)
--- NOTE | 2020-09-23 08:14 | OR ---
DATE: 09/23/2020 PROCEDURE: Total colonoscopy. INSTRUMENT USED: [id number] Olympus video colonoscope. PREMEDICATIONS: Fentanyl 100 mcg intravenous, Versed 4 mg intravenous, nasal O2 cannula. The procedure was done under pulse oximetry, BP recording, and sash finisher. INDICATION: The patient with Hemoccult positive stools and anemia, unexplained. Colonoscopic examination is done for detection of any polypoid lesions and removal, endoscopic hemostasis therapy if needed. DESCRIPTION OF PROCEDURE: Initial rectal exam was unremarkable. Rigid anoscopy was normal. The colonoscope was passed up to the ileocecal area. Photographs were taken of the normal-appearing cecum, identified by appendiceal orifice and double-bulged ileocecal folds. No bleeding was noted from any of the visualized areas at the commencement of the examination. The bowel preparation was inadequate due to the presence of large amount of fecal material that had to be aspirated, [place] scale 1 in all the areas, total score 3. The colon was found to be tortuous and redundant, prolonged examination. No stricture. No vascular ectasia. No large isolated ulcerations seen. No evidence of diffuse inflammatory bowel disease in the form of friability, contact bleeding, or ulcerations. No polyp or tumor mass identified. Probing the proximal sides of folds and flexures using adequate distention and clearing up the stool material, withdrawal of the scope was made, cecum to rectum time over 6 minutes. No bleeding was noted from any of the visualized areas at the completion of examination. IMPRESSION: Normal study. The patient tolerated the procedure well. [facility] /[id number]
[2020-09-23 09:53] VITALS: BP 121/68; PULSE 60
== END 2020-09-23 09:13 | disposition home or self-care (01) ==
LOC: DL.ENDO 05:25
PROVIDERS: ATTEND Internal Medicine Gastroenterology
DX: D64.9 Anemia, unspecified (principal); K92.1 Melena; E11.9 Type 2 diabetes mellitus without complications; E66.09 Other obesity due to excess calories; I10 Essential (primary) hypertension; E78.00 Pure hypercholesterolemia, unspecified; E55.9 Vitamin D deficiency, unspecified; I87.2 Venous insufficiency (chronic) (peripheral); Z95.0 Presence of cardiac pacemaker; Z98.890 Other specified postprocedural states; Z88.8 Allergy status to other drugs, medicaments and biological substances; Z68.28 Body mass index [BMI] 28.0-28.9, adult
CPT/HCPCS: J2250; J3010; J7042

== ENCOUNTER 2023-02-15 21:34 | Emergency (ER) | payer MEDICARE, BC ==
[2023-02-15] MEDS ORDERED: Sodium Chloride 0.9% 10 ML Syringe FLUSH PRN (21:40)
[2023-02-15 22:38] LABS: ANION GAP 14.6 mEq/L (7-13)
[2023-02-15] MEDS ORDERED: Sodium Chloride 0.9% 1,000 ML IV ONE (22:53)
[2023-02-16 00:40] VITALS: BP 156/62; PULSE 67
== END 2023-02-16 00:32 | disposition home or self-care (01) ==
LOC: DL.ED 21:34
DX: R07.89 Other chest pain (principal); E11.9 Type 2 diabetes mellitus without complications; K21.9 Gastro-esophageal reflux disease without esophagitis; E78.00 Pure hypercholesterolemia, unspecified; I10 Essential (primary) hypertension; Z95.0 Presence of cardiac pacemaker; Z79.899 Other long term (current) drug therapy; Z88.0 Allergy status to penicillin; Z91.048 Other nonmedicinal substance allergy status; Z88.5 Allergy status to narcotic agent; Z79.82 Long term (current) use of aspirin
CPT/HCPCS: 36415; 71045; 80053; 83735; 83880; 84443; 84484; 85025; 85610; 93005; 96360; 99285; J3490; J7030; 93010; 99284

== ENCOUNTER 2024-04-27 09:38 | Inpatient (IN) | payer MEDICARE, BC ==
[2024-04-27] MEDS: Meclizine 12.5 MG Tab PO ONE (10:05)
[2024-04-27 10:06] LABS: BASOPHILS PERCENT AUTO 0.4 % (0.0-1.0); EOSINOPHILS PERCENT AUTO 1.6 % (1.0-3.0); HEMATOCRIT 36.4 % (40.0-54.0); HEMOGLOBIN 12.2 g/dL (14.0-18.0); LYMPHOCYTES PERCENT AUTO 42.9 % (20.5-50.1); MEAN CORPUSCULAR HEMOGLOBIN 30.7 pg (27.0-34.0); MEAN CORPUSCULAR HGB CONC 33.5 g/dL (33.0-35.0); MEAN CORPUSCULAR VOLUME 91.5 fL (80-100); MONOCYTES PERCENT AUTO 10.3 % (2-8); NEUTROPHILS PERCENT AUTO 44.8 % (42.2-75.2); PLATELET COUNT,PLT 252 10^3/uL (150-450); RED BLOOD CELL COUNT 3.98 10^6/uL (4.6-6.2); WHITE BLOOD CELL COUNT,WBC 6.8 10^3/uL (5.0-10.0)
[2024-04-27] MEDS: Docusate Sodium 100 MG Cap ONE (10:08)
[2024-04-27 10:18] LABS: ALBUMIN 3.8 g/dL (3.4-5.0); ANION GAP 12.2 mEq/L (7-13); BILIRUBIN TOTAL 0.4 mg/dL (0.2-1.0); BUN/CREATININE RATIO 25.2 (No establ ref range); CALCIUM 9.1 mg/dL (8.5-10.1); CREATININE 1.15 mg/dL (0.70-1.30); EST CRCL DRUG DOSING (CG) 53.07 mL/min; POTASSIUM,K 4.2 mmol/L (3.5-5.1); PROTEIN TOTAL,TP 7.6 g/dL (6.4-8.2)
[2024-04-27] MEDS: Dexamethasone 4 MG/ML SDV IVPUSH ONE (11:39)
[2024-04-27] MEDS ORDERED: Magnesium Hydroxide 400 MG/5 ML Susp 30 ML Cup PO PRN (13:58)
[2024-04-27] MEDS ORDERED: Melatonin 3 MG Tab PO PRN (13:58)
[2024-04-27] MEDS ORDERED: Ketorolac 30 MG/ML SDV IVPUSH PRN (13:58)
[2024-04-27] MEDS ORDERED: Albuterol/Ipratropium 3.0-0.5 MG/3 ML Neb Soln NEB PRN (13:58)
[2024-04-27] MEDS ORDERED: Polyethylene Glycol 3350 Powder 17 GM Packet PO PRN (14:01)
[2024-04-27] MEDS ORDERED: Flumazenil 0.1 MG/ML 5 ML MDV IVPUSH PRN (14:12)
[2024-04-27] MEDS ORDERED: traMADol 50 MG Tab PO PRN (14:14)
[2024-04-27] MEDS ORDERED: hydrALAZINE 20 MG/ML SDV IVPUSH PRN (14:14)
[2024-04-27] MEDS ORDERED: Metoprolol Tartrate 5 MG/5 ML SDV IVPUSH PRN (14:14)
[2024-04-27] MEDS: Glimepiride 2 MG Tab PO SCH (17:39)
[2024-04-27] MEDS: Acetaminophen 325 MG Tab PO PRN (18:18)
[2024-04-27] MEDS: Calcium Carbonate 500 MG Tab.Chew PO SCH (20:30)
[2024-04-27] MEDS: metFORMIN 500 MG Tab PO SCH (20:30)
[2024-04-27] MEDS: Famotidine 20 MG Tab PO SCH (20:31)
[2024-04-27] MEDS: Simvastatin 40 MG Tab PO SCH (20:31)
[2024-04-27] MEDS: Meclizine 12.5 MG Tab PO PRN (20:32)
[2024-04-27] MEDS: Ondansetron 4 MG/2 ML SDV IVPUSH PRN (20:45)
[2024-04-28 07:23] LABS: A/G RATIO 0.9; ALBUMIN 3.8 g/dL (3.4-5.0); ANION GAP 13.8 mEq/L (7-13); BILIRUBIN TOTAL 0.3 mg/dL (0.2-1.0); BUN/CREATININE RATIO 24.6 (No establ ref range); CALCIUM 9.1 mg/dL (8.5-10.1); CREATININE 1.3 mg/dL (0.70-1.30); EST CRCL DRUG DOSING (CG) 46.95 mL/min; MAGNESIUM 1.9 mg/dL (1.8-2.4); POTASSIUM,K 4.8 mmol/L (3.5-5.1); PROTEIN TOTAL,TP 7.8 g/dL (6.4-8.2)
[2024-04-28 07:39] LABS: BASOPHILS PERCENT AUTO 0.1 % (0.0-1.0); HEMATOCRIT 35.8 % (40.0-54.0); HEMOGLOBIN 12.1 g/dL (14.0-18.0); LYMPHOCYTES PERCENT AUTO 23.5 % (20.5-50.1); MEAN CORPUSCULAR HEMOGLOBIN 30.8 pg (27.0-34.0); MEAN CORPUSCULAR HGB CONC 33.8 g/dL (33.0-35.0); MEAN CORPUSCULAR VOLUME 91.1 fL (80-100); MONOCYTES PERCENT AUTO 12.4 % (2-8); PLATELET COUNT,PLT 258 10^3/uL (150-450); RED BLOOD CELL COUNT 3.93 10^6/uL (4.6-6.2); WHITE BLOOD CELL COUNT,WBC 9.5 10^3/uL (5.0-10.0)
[2024-04-28] MEDS: DULoxetine 30 MG Cap PO SCH (08:25)
[2024-04-28] MEDS: amLODIPine 5 MG Tab PO SCH (08:27)
[2024-04-28] MEDS: Aspirin 81 MG Tab.EC PO SCH (08:28)
[2024-04-28] MEDS: Cyanocobalamin (Vitamin B12) 1,000 MCG Tab PO SCH (08:28)
[2024-04-28] MEDS: Metoprolol Succinate 50 MG Tab.ER PO SCH (08:28)
[2024-04-28] MEDS: Hydrochlorothiazide 25 MG Tab PO SCH (08:29)
[2024-04-28] MEDS: Carbamide Peroxide 6.5% Otic Soln 15 ML Bottle EARRT ONE (17:57)
[2024-04-28] MEDS: Carbamide Peroxide 6.5% Otic Soln 15 ML Bottle EARRT SCH (20:55)
[2024-04-29 06:36] LABS: BASOPHILS PERCENT AUTO 0.2 % (0.0-1.0); HEMATOCRIT 33.4 % (40.0-54.0); HEMOGLOBIN 10.9 g/dL (14.0-18.0); LYMPHOCYTES PERCENT AUTO 46.1 % (20.5-50.1); MEAN CORPUSCULAR HEMOGLOBIN 30.4 pg (27.0-34.0); MEAN CORPUSCULAR HGB CONC 32.6 g/dL (33.0-35.0); MEAN CORPUSCULAR VOLUME 93.3 fL (80-100); MONOCYTES PERCENT AUTO 11.5 % (2-8); NEUTROPHILS PERCENT AUTO 41.2 % (42.2-75.2); PLATELET COUNT,PLT 235 10^3/uL (150-450); RED BLOOD CELL COUNT 3.58 10^6/uL (4.6-6.2); WHITE BLOOD CELL COUNT,WBC 9.2 10^3/uL (5.0-10.0)
[2024-04-29 07:20] LABS: A/G RATIO 0.9; ALBUMIN 3.4 g/dL (3.4-5.0); ANION GAP 13.3 mEq/L (7-13); BILIRUBIN TOTAL 0.3 mg/dL (0.2-1.0); BUN/CREATININE RATIO 22.5 (No establ ref range); CALCIUM 9.1 mg/dL (8.5-10.1); CREATININE 1.2 mg/dL (0.70-1.30); EST CRCL DRUG DOSING (CG) 50.86 mL/min; MAGNESIUM 1.8 mg/dL (1.8-2.4); POTASSIUM,K 4.3 mmol/L (3.5-5.1)
[2024-04-29] MEDS: Famotidine 20 MG Tab PO SCH (09:01)
[2024-04-29] MEDS: Polyethylene Glycol 3350 Powder 17 GM Packet PO PRN (09:13)
[2024-04-30 06:38] LABS: BASOPHILS PERCENT AUTO 0.3 % (0.0-1.0); EOSINOPHILS PERCENT AUTO 1.8 % (1.0-3.0); HEMATOCRIT 35.5 % (40.0-54.0); HEMOGLOBIN 11.6 g/dL (14.0-18.0); LYMPHOCYTES PERCENT AUTO 42.4 % (20.5-50.1); MEAN CORPUSCULAR HEMOGLOBIN 30.4 pg (27.0-34.0); MEAN CORPUSCULAR HGB CONC 32.7 g/dL (33.0-35.0); MEAN CORPUSCULAR VOLUME 92.9 fL (80-100); MONOCYTES PERCENT AUTO 13.4 % (2-8); NEUTROPHILS PERCENT AUTO 42.1 % (42.2-75.2); PLATELET COUNT,PLT 231 10^3/uL (150-450); RED BLOOD CELL COUNT 3.82 10^6/uL (4.6-6.2); WHITE BLOOD CELL COUNT,WBC 9.4 10^3/uL (5.0-10.0)
[2024-04-30 07:00] LABS: ALBUMIN 3.3 g/dL (3.4-5.0); ANION GAP 10.2 mEq/L (7-13); BILIRUBIN TOTAL 0.3 mg/dL (0.2-1.0); BUN/CREATININE RATIO 21.8 (No establ ref range); CALCIUM 9.1 mg/dL (8.5-10.1); CREATININE 1.19 mg/dL (0.70-1.30); EST CRCL DRUG DOSING (CG) 51.29 mL/min; MAGNESIUM 1.7 mg/dL (1.8-2.4); POTASSIUM,K 4.2 mmol/L (3.5-5.1); PROTEIN TOTAL,TP 6.9 g/dL (6.4-8.2)
[2024-04-30 07:14] LABS: A/G RATIO 0.92
[2024-04-30 07:53] VITALS: BP 154/70; PULSE 67
== END 2024-04-30 10:58 | disposition home or self-care (01) | DRG 149 ==
LOC: DL.ED 09:38 → DL.MS 13:17 → DL.ED 13:21 → OBSVTOIN 04-28 15:47
PROVIDERS: ADMIT Internal Medicine; ATTEND Internal Medicine
DX: R42 Dizziness and giddiness (principal); H81.10 Benign paroxysmal vertigo, unspecified ear; E11.9 Type 2 diabetes mellitus without complications; H61.21 Impacted cerumen, right ear; E78.00 Pure hypercholesterolemia, unspecified; I10 Essential (primary) hypertension; H54.7 Unspecified visual loss; K21.9 Gastro-esophageal reflux disease without esophagitis; Z96.659 Presence of unspecified artificial knee joint; I49.5 Sick sinus syndrome; R53.1 Weakness; E11.65 Type 2 diabetes mellitus with hyperglycemia; Z88.0 Allergy status to penicillin; Z88.1 Allergy status to other antibiotic agents; Z88.8 Allergy status to other drugs, medicaments and biological substances; Z91.048 Other nonmedicinal substance allergy status; Z79.82 Long term (current) use of aspirin; Z79.84 Long term (current) use of oral hypoglycemic drugs; Z79.899 Other long term (current) drug therapy; Z95.0 Presence of cardiac pacemaker; Z98.49 Cataract extraction status, unspecified eye; Z98.890 Other specified postprocedural states; Z87.891 Personal history of nicotine dependence
CPT/HCPCS: 36415 ×2; 70450; 80053 ×2; 82947 ×3; 83735; 84484; 85025 ×2; 96374; 96375 ×2; 96376 ×2; 99285; A9270 ×20; G0378 ×3; J1100; J2405 ×2; J3360 ×3; 97161-GP; 97530-GP

== ENCOUNTER 2025-04-23 10:05 | Emergency (ER) | payer MEDICARE, BC ==
[2025-04-23 10:20] VITALS: BP 145/78; PULSE 83
[2025-04-23 10:38] LABS: BASOPHILS PERCENT AUTO 0.9 % (0.0-1.0); EOSINOPHILS PERCENT AUTO 3.1 % (1.0-3.0); HEMATOCRIT 34.3 % (40.0-54.0); HEMOGLOBIN 11.6 g/dL (14.0-18.0); LYMPHOCYTES PERCENT AUTO 37.9 % (20.5-50.1); MEAN CORPUSCULAR HEMOGLOBIN 31.5 pg (27.0-34.0); MEAN CORPUSCULAR HGB CONC 33.8 g/dL (33.0-35.0); MEAN CORPUSCULAR VOLUME 93.2 fL (80-100); MONOCYTES PERCENT AUTO 16.7 % (2-8); NEUTROPHILS PERCENT AUTO 41.4 % (42.2-75.2); PLATELET COUNT,PLT 229 10^3/uL (150-450); RED BLOOD CELL COUNT 3.68 10^6/uL (4.6-6.2); WHITE BLOOD CELL COUNT,WBC 5.8 10^3/uL (5.0-10.0)
[2025-04-23 10:57] LABS: ALBUMIN 3.7 g/dL (3.4-5.0); ANION GAP 15.2 mEq/L (7-13); BILIRUBIN TOTAL 0.4 mg/dL (0.2-1.0); BUN/CREATININE RATIO 17.6 (No establ ref range); CALCIUM 9.6 mg/dL (8.5-10.1); CREATININE 1.25 mg/dL (0.70-1.30); EST CRCL DRUG DOSING (CG) 50.7 mL/min; POTASSIUM,K 4.2 mmol/L (3.5-5.1); PROTEIN TOTAL,TP 7.4 g/dL (6.4-8.2)
== END 2025-04-23 12:11 | disposition home or self-care (01) ==
LOC: DL.ED 10:05
DX: K59.00 Constipation, unspecified (principal); I10 Essential (primary) hypertension; E78.00 Pure hypercholesterolemia, unspecified; K21.9 Gastro-esophageal reflux disease without esophagitis; E11.9 Type 2 diabetes mellitus without complications; Z95.0 Presence of cardiac pacemaker; Z79.82 Long term (current) use of aspirin; Z91.048 Other nonmedicinal substance allergy status; Z88.1 Allergy status to other antibiotic agents; Z88.0 Allergy status to penicillin
CPT/HCPCS: 36415; 74018; 80053; 85025; 99283; 99284